=== PATIENT | female | born 1995 | race Caucasian/White ===

== ENCOUNTER 2016-07-16 11:04 | Emergency (ER) | payer MEDICAID ==
[~2016-07-16] VITALS: Ht 167.6 cm; Wt 86.0 kg
[~2016-07-16 11:04] MED LIST: IBUP600 PO; LORTA5 PO; PERI8.6T PO; PRENCAP10 PO
[2016-07-16 11:05] VITALS: BP 141/73; PULSE 88; RESP 14; TEMP 98.2; O2SAT 98
--- NOTE | 2016-07-16 11:15 | PD ---
HPI . cracked finger nail x earlier today Chief Complaint: Pain: Acute or Chronic Time Seen by Provider: 11:15 Travel History International Travel<30 days: No Contact w/Intl Traveler<30days: No Traveled to known affect area: No History of Present Illness HPI 20-year-old female here with complaints of her right pinky fingernail being cracked. Patient says she was trying to open something and somehow the fingernail cracked. She does have acrylic tips on and there is a crack extending to the distal nail bed. She is here complaining of pain and would like us to fix her nail. She denies any pain to her actual finger. Her range of motion is normal. She is left-handed dominant. 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 PFSH Past Medical History Diminished Hearing: No Immunizations Current: No Migraines: Yes ?: Not LMP: 06/24/16 : 1 Para: 1 Social History Alcohol Use: No Tobacco Use: No Substance Use: No Allergies-Medications (Allergen,Severity, Reaction): Coded Allergies: Codeine (Verified Allergy, Severe, 07/16/16) Iodine (Verified Allergy, Severe, 07/16/16) Shellfish (Verified Allergy, Severe, VOMITING, 07/16/16) Reported Meds & Prescriptions Reported Meds & Active Scripts Active No Active Prescriptions or Reported Medications Review of Systems General / Constitutional: No: Fever Eyes: No: Visual changes HENT: No: Headaches Cardiovascular: No: Chest Pain or Discomfort Respiratory: No: Shortness of Breath Gastrointestinal: No: Abdominal Pain Genitourinary: No: Dysuria Musculoskeletal: Positive: Pain (right pinky finger) Skin: No Rash Neurologic: No: Weakness Psychiatric: No: Depression Endocrine: No: Polydipsia Hematologic/Lymphatic: No: Easy Bruising Physical Exam Narrative GENERAL: AAO x 3, no acute distress, Well-nourished, well-developed patient. SKIN: Warm and dry. No visible rashes or bruising. Acrylic nail present on the right fifth digit. There is a slight crack in the distal tip of the nail without separation. No evidence of infection. Finger is intact HEAD: Normocephalic and atraumatic. EYES: No scleral icterus. No injection or drainage. EOM intact, PERRLA ENT: No nasal drainage noted. Mucous membranes pink. Airway patent. NECK: Supple, trachea midline. No JVD. CARDIOVASCULAR: Regular rate and rhythm without murmurs, gallops, or rubs. RESPIRATORY: Breath sounds equal bilaterally. No accessory muscle use. No rhonchi or rales. GASTROINTESTINAL: Abdomen soft, non-tender, nondistended. EXTREMITIES: No cyanosis or edema. All digits mobile on right hand BACK: Nontender without obvious deformity. No CVA tenderness. PSYCH: AAO x 3, normal affect. Data Data Last Documented VS Vital Signs Date Time Temp Pulse Resp B/P Pulse Ox O2 Delivery O2 Flow Rate FiO2 07/16/16 11:05 98.2 88 14 141/73 98 Orders Lidocaine 1% Inj (50 Ml) (Xylocaine 1% I (07/16/16 11:30) Tetanus/Diphtheria Tox Adult (Tetanus/Di (07/16/16 11:45) MDM Medical Decision Making Medical Screen Exam Complete: Yes Emergency Medical Condition: Yes Medical Record Reviewed: Yes Differential Diagnosis nail bed injury, less likely finger fracture, less likely finger dislocation Narrative Course 20-year-old female here with complaints of her right pinky fingernail being cracked. Patient says she was trying to open something and somehow the fingernail cracked. She does have acrylic tips on and there is a crack extending to the distal nail bed. She is here complaining of pain and would like us to fix her nail. She denies any pain to her actual finger. Her range of motion is normal. She is left-handed dominant. 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 Patient seen and examined. She does have a tear of the nail extending to the distal nail bed, however it is only partially torn and still remains intact. I presented 2 options. I advised her that I could remove the distal portion of the nail with local anesthesia or place the nail back in place, to allow healing and growth and protection of the nailbed. Patient opted to keep the nail intact. I cleaned the area with saline and Betadine. I then went to perform a digital block to assure complete anesthesia to the distal tip of the finger, however patient then declined the injection as she is afraid of needles. She asked me to place it back in place without any local anesthesia, which I did. Patient tolerated the procedure well without any complications. A clean and sterile dressing was applied to the right pinky finger. I advised her to look out for signs of infection. She does have a tear into the nailbed, tetanus was administered as she does not recall her last tetanus vaccine. I advised her to try to protect the finger from any further injury and suggest trying to use a splint over it while working. Patient declined the tetanus shot. Patient verbalized understanding of instructions, questions were answered, and thanked me for their care. I advised them if their condition worsens, please return to the nearest emergency room for further care. Procedures Procedure Narrative I presented 2 options. I advised her that I could remove the distal portion of the nail with local anesthesia or place the nail back in place, to allow healing and growth and protection of the nailbed. Patient opted to keep the nail intact. I cleaned the area with saline and Betadine. I then went to perform a digital block to assure complete anesthesia to the distal tip of the finger, however patient then declined the injection as she is afraid of needles. She asked me to place it back in place without any local anesthesia, which I did. Patient tolerated the procedure well without any complications. A clean and sterile dressing was applied to the right pinky finger. Diagnosis Primary Impression: Nailbed contusion, finger Qualified Code: S60.10XA - Nailbed contusion, finger, initial encounter Patient Instructions: Acute Wound Care (ED), General Instructions Departure Forms: Tests/Procedures, Work Release Enter return to work date: Jul 17, 2016 Additional Instructions: Keep area clean and dry. Use gauze as we discussed and change 1-2 times a day. Watch for signs of infection: fever, redness, swelling, warmth, pus or drainage , red streaks around the cut, and increased pain from the area. You received a tetanus shot today. You may experience tenderness at the injection site. This is normal. Med/Other Pt SpecificInfo: No Meds Exist/No RX given Scripts No Active Prescriptions or Reported Meds Disposition: 01 DISCHARGE HOME Condition: Stable Jamilah Rosas Jul 16, 2016 11:15
[2016-07-16] MEDS ORDERED: LIDOCAINE HCL 1% 50 ML VIAL INFIL ONE (11:30)
[2016-07-16] MEDS ORDERED: TETANUS/DIPHTHERIA TOXOID ADULT 0.5 ML VIAL IM ONE (11:45)
== END 2016-07-16 12:04 | disposition home or self-care (01) ==
LOC: NETRI 11:04
DX: S60.151A Contusion of right little finger with damage to nail, initial encounter (principal); X58.XXXA Exposure to other specified factors, initial encounter
CPT/HCPCS: 99283

== ENCOUNTER → 2017-04-05 | Outpatient (CLI) | payer MEDICAID | LOC: HPND 08:52 | PROVIDERS: ATTEND Obstetrics & Gynecology | DX: Q78.0 Osteogenesis imperfecta (principal); O35.2XX0 Maternal care for (suspected) hereditary disease in fetus, not applicable or unspecified; Z03.73 Encounter for suspected fetal anomaly ruled out; Z81.8 Family history of other mental and behavioral disorders | CPT/HCPCS: 76811 ==

== ENCOUNTER 2017-05-24 23:35 | Emergency (ER) | payer MEDICAID ==
--- NOTE | 2017-05-25 01:27 | PD ---
HPI Chief Complaint Decreased movement contractions Date Seen: May 25, 2017 Time Seen: 01:00 Travel History International Travel<30 Days: No Contact w/Intl Traveler<30Days: No Known Affected Area: No History of Present Illness HPI Patient 21-year-old A1 at [address] Perez in [facility] and presents planning of decreased movement and contractions today. Denies bleeding or ruptured membranes. Amnio sure tonight is negative heart rate tracing is reactive and she is reji irregularly. Patient has delivered of her last baby vaginally and the baby had osteogenic imperfecta with a broken clavicle broken leg. Patient's significant other has osteogenic imperfecta. Patient first 2 babies were by different father were totally normal. Patient has been seen by maternal medicine consultation earlier in there were very eloquent note but did not describe the best way to deliver her, patient says they said it was okay for delivery vaginally we have no documentation of that Weeks Gestation: 39 Para: 3 : 5 Miscarriage: 1 History Obstetric History Obstetric History Is delivered 3 babies first 2 babies were different father and were normal last baby delivered vaginally and osteogenic imperfecta and was fathered by a significant other that has osteogenic imperfecta, this been no workup genetic testing done for the last or for this however she did have a maternal medicine consultation and they saw no sonographic evidence of skeletal disorder at that time Family History Narrative Family History has osteogenesis imperfecta is fathered children with that disease Social History Alcohol Use: No Tobacco Use: No Substance Abuse: No Allergies-Medications (Allergen,Severity, Reaction): Coded Allergies: codeine (Unverified Allergy, Severe, 11/29/16) iodine (Unverified Allergy, Severe, 11/29/16) potassium iodide (Unverified Allergy, Severe, 11/29/16) povidone-iodine (Unverified Allergy, Severe, 11/29/16) shellfish derived (Unverified Allergy, Severe, VOMITING, 11/29/16) sodium iodide (Unverified Allergy, Severe, 11/29/16) sodium iodide (Unverified Allergy, Severe, 11/29/16) Home Meds No Active Prescriptions or Reported Meds Review of Systems General / Constitutional: No: Fever, Weight Gain, Chills, Other Eyes: No: Diploplia, Blurred Vision, Visual changes, Pain, Photophobia HENT: No: Headaches, Vertigo, Lightheadedness Cardiovascular: No: Irregular Rhythm, Chest Pain or Discomfort, Palpitations, Tachycardia, Syncope, Varicosities, Edema, Cyanosis Respiratory: No: Cough, Short of Breath, Other Gastrointestinal: Abdominal Pain, No: Nausea, Vomiting, Diarrhea Genitourinary: No: Decreased Urinary Output, Oliguria Musculoskeletal: No: Limited ROM, Weakness, Cramping, Edema, Pain Skin: No Rash, No Itching, No Dryness, No Lumps, No Change in Pigmentation, No Change in Nails, No Alopecia, No Lesions Neurologic: No: Weakness, Dizziness, Syncope, Focal Abnormalities, Coordination Problem, Headache, Slurred Speech, Seizures Psychiatric: No: Depression, Suicidal Ideations, Homicidal Ideation Endocrine: No: Heat Intolerance, Cold Intolerance, Polydipsia, Polyuria, Other Physical Exam Narrative GENERAL: Well-nourished, well-developed patient. SKIN: Warm and dry. HEAD: Normocephalic and atraumatic. EYES: No scleral icterus. No injection or drainage. ENT: No nasal drainage noted. Mucous membranes pink. Airway patent. NECK: Supple, trachea midline. No JVD. CARDIOVASCULAR: Regular rate and rhythm without murmurs, gallops, or rubs. RESPIRATORY: Breath sounds equal bilaterally. No accessory muscle use. BREASTS: Bilateral exam showed no masses , no retractions, no nipple discharge. ABDOMEN/GI: Abdomen soft, non-tender, bowel sounds present, no rebound, no guarding Gravid to [39-] weeks size Fundal Height: [39-] GENITOURINARY: External Genitalia: intact and normal in appearance BUS glands: [-] Cervix: [-] Dilatation: [-4-5] Effacement: [50-] Station: [-3] Presentation: [vtx-] Membranes: [intact ] Uterine Contractions: [irreg-] FHT's: Category: [-1] Baseline: [133-] Reactive: [-R] Variability: [-mod] Decels: [-none] EXTREMITIES: No cyanosis or edema. BACK: Nontender without obvious deformity. No CVA tenderness. NEUROLOGICAL: Awake and alert. Motor and sensory grossly within normal limits. Five out of 5 muscle strength in all muscle groups. Normal speech. MDM Interpretation(s) Patient 21-year-old A1 at 39 weeks [address] Perez in [facility] and presents planning of decreased movement today as well as contraction activity. Her cervix is 4-5 cm 50% -3 posterior with a bulging bag vertex baby. Patient also has her significant other with an osteogenic imperfecta and her last baby was born with osteogenic imperfecta and had a broken clavicle & leg, and with that history we've recommended patient have a section for delivery to avoid trauma as much as possible to this fetus. The patient is thought about this and does not want a .,, I spent a long time discussing the disease process Risks the baby could have multiple fractures the could be severe and that all the way to to minimize that trauma is to have the , patient still does not want she feels that she is labored and delivered fine before and wants to do it again is even though the discussion we had outlined all those risks Plan I plan for the patient to at least be admitted to observation cervix and see if she's going to change her cervix over the next few hours to be in an in- hospital setting just in case she were to deliver precipitously baby with multiple fractures however she does not want to stay in the hospital she wants to labor at home she lives 3 minutes away she says that she's in the past come in at 9 cm and delivered a baby. The patient was encouraged to not do this but since it really has not no change the outcome she's wants to deliver vaginally anyway either laboring at home her laboring here we felt that she could be discharged and will return for worsening labor signs Diagnosis Diagnosis: Primary Impression: Decreased movement affecting management of in third trimester Additional Impression: Uterine contractions during Disposition: 01 DISCHARGE HOME Condition: Stable Scripts No Active Prescriptions or Reported Meds Patient Instructions: General Instructions Departure Forms: Tests/Procedures Brenton Hendricks II, MD May 25, 2017 01:27
== END 2017-05-25 01:34 | disposition home or self-care (01) ==
LOC: HOBED 23:35
DX: O36.8130 Decreased fetal movements, third trimester, not applicable or unspecified (principal); O62.9 Abnormality of forces of labor, unspecified; Z3A.39 39 weeks gestation of pregnancy; Z88.5 Allergy status to narcotic agent
CPT/HCPCS: 84112; 99283